=== PATIENT | female | born 1990 | race Hispanic/Latino ===

== ENCOUNTER → 2019-07-22 | Outpatient (CLI) | payer SELFPAY ==
[~2019-07-22] MED LIST: IOHEXOL-350 50ML VIAL IV ONE
== END | disposition home or self-care (01) ==
LOC: RAH 09:41
PROVIDERS: ATTEND Nurse Practitioner Family
DX: R59.0 Localized enlarged lymph nodes (principal)
CPT/HCPCS: 70492; Q9967